=== PATIENT | male | born 1980 | race Caucasian/White ===

== ENCOUNTER 2016-12-18 00:04 | Emergency (ER) | payer OTHER ==
[~2016-12-18] VITALS: Ht 185.4 cm; Wt 121.4 kg
[~2016-12-18 00:04] MED LIST: ALPRAZOLAM1 MG PO; AMOX TR-K CLV1 EAC4 PO; AMPHETAMINE SAL30 MG PO; BACTRIM,SEPT1 TABLET PO; CIPROFLOXACIN500 M1 PO; DOLOPHINE HCL10 MG PO; DOXYCYCLINE HY100 MG PO; LEVAQUIN750 MG PO; LISINOPRIL-HCT1 EAC3 PO; METHADONE10 MG PO; MOTRIN600 MG PO; OXYCODONE HCL30 MG PO; SUMATRIPTAN SU100 MG PO
[2016-12-18] MEDS ORDERED: MOTRIN800 MG PO (00:44)
[2016-12-18 01:12] VITALS: BP 148/92
== END 2016-12-18 01:13 | disposition home or self-care (01) ==
LOC: EME 00:04
PROC: 2W3EX1Z Immobilization of Right Hand using Splint (ICD-10-PCS; principal; 2016-12-18)
DX: S62.364A Nondisplaced fracture of neck of fourth metacarpal bone, right hand, initial encounter for closed fracture (principal); S62.316A Displaced fracture of base of fifth metacarpal bone, right hand, initial encounter for closed fracture; Y08.02XA Assault by strike by baseball bat, initial encounter; F17.200 Nicotine dependence, unspecified, uncomplicated; Z79.891 Long term (current) use of opiate analgesic; Z72.0 Tobacco use
CPT/HCPCS: 73130; 99281; 99284

== ENCOUNTER → 2016-12-22 | Outpatient (CLI) | payer OTHER ==
[~2016-12-22] MED LIST changes: +MOTRIN800 MG PO
== END | disposition home or self-care (01) ==
LOC: CDC 14:21
DX: R94.31 Abnormal electrocardiogram [ECG] [EKG] (principal); S62.316A Displaced fracture of base of fifth metacarpal bone, right hand, initial encounter for closed fracture; S62.334A Displaced fracture of neck of fourth metacarpal bone, right hand, initial encounter for closed fracture; M79.641 Pain in right hand
CPT/HCPCS: 93000

== ENCOUNTER 2017-04-23 23:07 | Emergency (ER) | payer OTHER ==
[~2017-04-23] VITALS: Ht 188 cm; Wt 118.0 kg
[2017-04-23 23:31] LABS: HEMATOCRIT 51.8 % (38.0-50.0); MCH 30.9 PG (29.0-34.0); MCV 90.9 FL (86-99); MEAN PLAT.VOLUME 11.2 uM^3 (9.0-12.4); PLATELET COUNT 205 K/uL (156-360); RBC DIS.WIDTH-CV 15.1 % (11.8-14.6); RBC DIS.WIDTH-SD 50.4 % (39-53); WHITE BLOOD COUNT 7.3 K/uL (4.1-10.2)
[2017-04-23 23:42] LABS: CHLORIDE 102 mEq/L (99-109); SODIUM 139 mEq/L (136-147)
[2017-04-23 23:43] LABS: GLUCOSE 88 mg/dL (70-99)
[2017-04-23 23:45] LABS: ANION GAP 12 MEQ/L (2-14)
[2017-04-23 23:47] LABS: GFR ESTIMATE (CALCULATED) > 59 mL/min/; SERUM ETHYL ALCOHOL 186 mg/dL
[2017-04-23 23:48] LABS: UREA NITROGEN (BUN) 13 mg/dL (9-23)
[2017-04-23 23:52] LABS: TROP-I INTERPRETATION NEGATIVE; TROPONIN-I < 0.01 ng/mL (0.0-0.30)
[2017-04-24 00:16] VITALS: BP 129/65
== END 2017-04-24 00:16 ==
LOC: EME 23:07
PROVIDERS: Emergency Medicine
DX: R07.9 Chest pain, unspecified (principal); M79.642 Pain in left hand; M79.641 Pain in right hand; F10.129 Alcohol abuse with intoxication, unspecified; I10 Essential (primary) hypertension; Z72.0 Tobacco use
CPT/HCPCS: 71010; 80048; 81003; 84484; 85027; 93005; 99281; 99284; G0480

== ENCOUNTER 2018-01-19 14:31 | Emergency (ER) | payer OTHER ==
[~2018-01-19] VITALS: Ht 185.4 cm; Wt 129.5 kg
[~2018-01-19 14:31] MED LIST changes: +ADDERALL30 MG PO; +MACROBID100 MG PO; +NORVASC10 MG PO; +OXYMORPHONE HCL40 MG PO; +TESTONE CI200 MG/1 M IM
[2018-01-19] MEDS ORDERED: TOPROL XL25 MG PO (17:36)
[2018-01-19] MEDS ORDERED: CATAPRES0.1 MG PO (17:37)
[2018-01-19] MEDS ORDERED: OXYMORPHONE HCL40 MG PO (17:38)
[2018-01-19] MEDS ORDERED: OXYCODONE HCL30 MG PO (17:40)
[2018-01-19] MEDS ORDERED: ADDERALL30 MG PO (17:42)
[2018-01-19] MEDS ORDERED: TESTOSTERO200 MG/12 IM (17:43)
[2018-01-19] MEDS ORDERED: ADULT ASPIRIN81 MG PO (17:43)
[2018-01-19] MEDS ORDERED: NARCAN4 MG NS (17:44)
[2018-01-19] MEDS ORDERED: IMITREX100 MG PO (17:44)
[2018-01-19 17:45] VITALS: BP 148/83
== END 2018-01-19 18:05 | disposition home or self-care (01) ==
LOC: EME 14:31
DX: Z76.0 Encounter for issue of repeat prescription (principal); R56.9 Unspecified convulsions
CPT/HCPCS: 99281; 99284